=== PATIENT | female | born 1950 | race Caucasian/White ===

== ENCOUNTER → 2016-10-15 | Outpatient (CLI) | payer MEDICARE, OTHER ==
[~2016-10-15] MED LIST: ASPI-COR81 M1 PO; DIAZIDE; EPA1000 MG PO; FLEXERIL10 MG PO; LOVASTATIN10 MG PO; NAPROSYN500 MG PO; OMEPRAZOLE40 MG PO; PAXIL30 MG PO; PERCOCET 325 MG1 TA5 PO; RANITIDINE75 MG PO; VENLAFAXINE H37.5 M5 PO; VICODIN 5/500 505 MG PO; ZOFRAN4 MG PO; ZYRTEC10 MG PO
[2016-10-15 10:19] LABS: BILIRUBIN NEGATIVE (NEGATIVE); BLOOD TRACE-INTACT (NEGATIVE); CLARITY CLOUDY (CLEAR); COLOR YELLOW (YELLOW); GLUCOSE NEGATIVE (NEGATIVE); KETONE NEGATIVE (NEGATIVE); LEUKO ESTERASE 3+ (NEGATIVE); NITRITE NEGATIVE (NEGATIVE); PROTEIN NEGATIVE (NEGATIVE)
[2016-10-15 11:06] LABS: WBC 51-100 wbc/hpf (0-5)
[2016-10-15 11:07] LABS: BACTERIA 4+
== END | disposition home or self-care (01) ==
LOC: LAB 08:43
PROVIDERS: Orthopaedic Surgery
DX: Z01.818 Encounter for other preprocedural examination (principal); S83.242A Other tear of medial meniscus, current injury, left knee, initial encounter; M22.42 Chondromalacia patellae, left knee; X58.XXXA Exposure to other specified factors, initial encounter; Y93.89 Activity, other specified; Y92.89 Other specified places as the place of occurrence of the external cause; Y99.8 Other external cause status; M47.894 Other spondylosis, thoracic region; M17.0 Bilateral primary osteoarthritis of knee; I10 Essential (primary) hypertension; E55.9 Vitamin D deficiency, unspecified; E78.00 Pure hypercholesterolemia, unspecified

== ENCOUNTER → 2016-10-22 | Day surgery (SDC) | payer MEDICARE, OTHER ==
[2016-10-15 09:04] VITALS: BP 136/91
[~2016-10-22] VITALS: Ht 165.1 cm; Wt 77.1 kg
--- NOTE | ~2016-10-22 | O ---
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 OPERATIVE PROCEDURES: Left knee arthroscopy with debridement of the medial and lateral meniscus tear and chondroplasty of the medial, lateral and patellofemoral compartments. SURGEON: Jose Yeboah DO BOOKING SUPERVISOR: Paulino. ANESTHESIA: ETHAN Sena, general with LMA intubation. INDICATIONS: The patient is a 66-year-old female with a history of pain and disability about the left knee, unrelieved with conservative care. The risks and benefits of the procedure were explained to the patient preoperatively. Preoperative labs and x-rays were obtained. Preoperative MRI was obtained confirming a complex medial meniscus tear and chondromalacia. PROCEDURE DESCRIPTION: The left knee was marked in the holding area. The patient was brought to the operative suite. Timeout was performed. The patient was placed supine on the operative table. General anesthetic with LMA intubation was performed. The left lower extremity was prepped and draped in the usual orthopedic manner and placed in a leg gallagher. The area about the medial and lateral parapatellar portals were injected with Marcaine 0.5% with epinephrine. The lateral portal was created using a #11 blade followed by a blunt trocar and cannula. The trocar was removed, the cannula remained. The inflow and the outflow were established through the cannula. The arthroscopy camera was placed through the cannula as well. The medial portal was created using a spinal needle followed by a #11 blade and a blunt trocar. The knee was evaluated in a systematic fashion. The medial compartment was evaluated and noted to have a complex posterior medial meniscus tear as well as grade 3 chondromalacia about the medial femoral condyle and tibial condyle. The meniscus tear was debrided using a handheld instrumentation, a full-radius resector, and an Arthrocare radiofrequency wand. The articular surface was gently smoothed using the full-radius resector as well as a handheld ling ball rasp. The notch was identified and evaluated. There was noted to be significant synovitis which was gently debrided using the radiofrequency wand. The anterior cruciate ligament was noted to be intact to probing and an anterior drawer test. Lateral compartment was identified and evaluated. There was noted to be a degenerative tear about the lateral meniscus. This was debrided using handheld [place], [place] OPERATIVE NOTE NAME: DARRYL GARCÍA UNIT #: [id number] ROOM: DOCTOR: JOSE YEBOAH DO BIRTHDATE: [birth year] instrumentation, a full-radius resector, and a radiofrequency wand. There was noted to be grade 2 chondromalacia in the lateral compartment, particularly about the tibial condyle. The patellofemoral joint was identified and evaluated. There was noted to be grade 2 chondromalacia about the femoral notch and patellar region. This was gently debrided using a handheld ling ball rasp and a full-radius resector to remove any remaining debris. The instrumentation was switched using an arthroscopy camera medially and instrumentation laterally. All compartments were again identified and evaluated. Further debridement was performed, particularly about the medial meniscus and the lateral meniscus. When no further repairable or debridable pathology was present, the knee was copiously irrigated with remainder of lactated Ringer with epinephrine. The instrumentation was removed. The knee was expressed of any excess fluid. The portals were closed with 4-0 nylon. The knee was injected with Marcaine 0.5% with epinephrine. Xeroform, 4 x 4s, ABDs, and cast padding were used to complete the dressing, followed by an Rome bandage. The anesthetic was reversed. The patient was extubated and taken to recovery room in satisfactory condition. Sponge and needle count correct. ESTIMATED BLOOD LOSS: 5 mL. SPECIMENS: None. DRAINS: None. PACKING: None. FINDINGS: 1. Complex medial meniscus tear. 2. Lateral meniscus tear. 3. Chondromalacia grade 3 of the medial compartment. 4. Chondromalacia grade 2 of the lateral and patellofemoral compartments. [place], [place] OPERATIVE NOTE NAME: DARRYL GARCÍA UNIT #: [id number] ROOM: DOCTOR: JOSE YEBOAH DO BIRTHDATE: [birth year] JOSE YEBOAH DO CM:OPRECORD:OPERATIVE NOTE [id number] JOSE YEBOAH DO 10/23/16 1537 interface
[2016-10-22 09:51] LABS: BILIRUBIN NEGATIVE (NEGATIVE); BLOOD NEGATIVE (NEGATIVE); COLOR YELLOW (YELLOW); GLUCOSE NEGATIVE (NEGATIVE); KETONE NEGATIVE (NEGATIVE); LEUKO ESTERASE NEGATIVE (NEGATIVE); NITRITE NEGATIVE (NEGATIVE); PROTEIN NEGATIVE (NEGATIVE); SPECIFIC GRAVITY 1.015 (1.005-1.030); UROBILINOGEN 0.2 E.U./dl (0.2-1.0)
[2016-10-22 09:57] LABS: BACTERIA TRACE; CLARITY SL CLOUDY (CLEAR); MUCOUS 1+
[2016-10-22 10:00] VITALS: BP 142/74
[2016-10-22 13:05] VITALS: BP 163/86
[2016-10-22 13:20] VITALS: BP 143/80
[2016-10-22 13:34] VITALS: BP 146/84
[2016-10-22 13:50] VITALS: BP 159/80
[2016-10-22 14:05] VITALS: BP 160/88
== END | disposition home or self-care (01) ==
LOC: SDC 10-15 08:45
PROVIDERS: Orthopaedic Surgery
DX: S83.232A Complex tear of medial meniscus, current injury, left knee, initial encounter (principal); S83.282A Other tear of lateral meniscus, current injury, left knee, initial encounter; M65.862 Other synovitis and tenosynovitis, left lower leg; M94.262 Chondromalacia, left knee; M17.12 Unilateral primary osteoarthritis, left knee; X58.XXXA Exposure to other specified factors, initial encounter; Y93.89 Activity, other specified; Y92.89 Other specified places as the place of occurrence of the external cause; Y99.8 Other external cause status; F41.9 Anxiety disorder, unspecified; F32.9 Major depressive disorder, single episode, unspecified

== ENCOUNTER → 2017-04-16 | Outpatient (CLI) | payer MEDICARE, OTHER | END | disposition home or self-care (01) | LOC: ORTHO 03:20 | DX: M17.12 Unilateral primary osteoarthritis, left knee (principal); M25.462 Effusion, left knee; M85.88 Other specified disorders of bone density and structure, other site ==

== ENCOUNTER → 2017-05-20 | Outpatient (CLI) | payer MEDICARE, OTHER | END | disposition home or self-care (01) | LOC: MAMMO 12:08 | DX: Z12.31 Encounter for screening mammogram for malignant neoplasm of breast (principal); Z13.820 Encounter for screening for osteoporosis; N95.9 Unspecified menopausal and perimenopausal disorder ==

== ENCOUNTER → 2018-06-10 | Outpatient (CLI) | payer MEDICARE, OTHER ==
[~2018-06-10] MED LIST changes: +ABILIFY5 MG PO; +LEVOTHYROXINE50 MCG PO
== END | disposition home or self-care (01) ==
LOC: MAMMO 05-21 14:00
DX: Z12.31 Encounter for screening mammogram for malignant neoplasm of breast (principal); R92.1 Mammographic calcification found on diagnostic imaging of breast

== ENCOUNTER → 2018-09-02 | Day surgery (SDC) | payer MEDICARE, OTHER ==
[~2018-09-02] VITALS: Ht 165.1 cm; Wt 74.8 kg
--- NOTE | ~2018-09-02 | O ---
[place], [place] OPERATIVE NOTE NAME: DARRYL GARCÍA UNIT #: [id number] ROOM: DOCTOR: DELGADO DE LA CRUZ MD BIRTHDATE: [birth year] DOS: 09/02/2018 PREOPERATIVE DIAGNOSIS: Cataract, right eye. POSTOPERATIVE DIAGNOSIS: Cataract, right eye. OPERATION: Extracapsular cataract extraction by phacoemulsification with posterior chamber intraocular lens implantation, right eye. ANESTHESIA: Monitored standby. OPERATIVE FINDINGS AND PROCEDURE: 2% Xylocaine topical anesthetic gel was applied to the eye in the preop area. The patient was taken to the operating room and prepped and draped in the standard fashion for sterile intraocular surgery. A time out procedure was performed verifying correct patient, correct site and corrects lens with Lizzeth De La Cruz M.D. The operating microscope was swung into position and the lid speculum was inserted. Using a Ros paracentesis blade, a paracentesis was made through clear cornea. Viscoelastic was used to fill the anterior chamber. Using a metal keratome a 2.4 mm self-sealing clear corneal cataract incision was made temporally at the limbus. Using a pre-bent 25 gauge cystotome needle, a standard continuous curvilinear capsulorrhexis was performed. The anterior capsule was removed with forceps. The lens nucleus was hydrodissected and phacoemulsified in the posterior chamber. Cortical material was removed with the irrigation aspiration hand piece and the posterior capsule was then polished with a curet under irrigation. The posterior chamber and capsular bag were filled with viscoelastic. A posterior chamber intraocular lens manufactured by: [employer], Model #[id number], and 20.5 diopters in strength were then inserted into the posterior chamber and within the capsular bag using the lens cartridge and injector system. Viscoelastic was removed using the irrigation aspiration handpiece. The anterior chamber was filled with balanced salt solution through the paracentesis. Both the paracentesis site and cataract incisions were hydrated with BSS and verified to be water-tight and self-sealing. Cefuroxime 1 mg/0.1 mL was injected into the anterior chamber through the paracentesis site. The incision checked to be water-tight using a Weck-Fabiola sponge. The integrity of the cataract wound and ocular tension were checked. Lid speculum and drapes were removed. The patient was transferred from the operating room to the recovery room in satisfactory condition. [place], [place] OPERATIVE NOTE NAME: DARRYL GARCÍA UNIT #: [id number] ROOM: DOCTOR: DELGADO DE LA CRUZ MD BIRTHDATE: [birth year] DELGADO DE LA CRUZ MD CM:OPRECORD:OPERATIVE NOTE 1138 [id number] DELGADO DE LA CRUZ MD 09/02/18 1154 interface
[2018-09-02 09:15] VITALS: BP 123/75
[2018-09-02 11:34] VITALS: BP 127/74
[2018-09-02 11:49] VITALS: BP 118/88
[2018-09-02 12:04] VITALS: BP 125/77
== END | disposition home or self-care (01) ==
LOC: SDC 08-28 11:00
DX: H25.811 Combined forms of age-related cataract, right eye (principal); F41.9 Anxiety disorder, unspecified; F32.9 Major depressive disorder, single episode, unspecified; K21.9 Gastro-esophageal reflux disease without esophagitis; E03.9 Hypothyroidism, unspecified; Z79.899 Other long term (current) drug therapy; Z98.51 Tubal ligation status; Z98.890 Other specified postprocedural states; Z72.89 Other problems related to lifestyle; Z91.040 Latex allergy status

== ENCOUNTER → 2018-09-09 | Day surgery (SDC) | payer MEDICARE, OTHER ==
--- NOTE | ~2018-09-09 | O ---
[place], [place] OPERATIVE NOTE NAME: DARRYL GARCÍA UNIT #: [id number] ROOM: DOCTOR: DELGADO DE LA CRUZ MD BIRTHDATE: [birth year] DOS: 09/09/2018 PREOPERATIVE DIAGNOSIS: Cataract, right eye. POSTOPERATIVE DIAGNOSIS: Cataract, right eye. OPERATION: Extracapsular cataract extraction by phacoemulsification with posterior chamber intraocular lens implantation, right eye. ANESTHESIA: Monitored standby. OPERATIVE FINDINGS AND PROCEDURE: 2% Xylocaine topical anesthetic gel was applied to the eye in the preop area. The patient was taken to the operating room and prepped and draped in the standard fashion for sterile intraocular surgery. A time out procedure was performed verifying correct patient, correct site and corrects lens with Lizzeth De La Cruz M.D. The operating microscope was swung into position and the lid speculum was inserted. Using a Ros paracentesis blade, a paracentesis was made through clear cornea. Viscoelastic was used to fill the anterior chamber. Using a metal keratome a 2.4 mm self-sealing clear corneal cataract incision was made temporally at the limbus. Using a pre-bent 25 gauge cystotome needle, a standard continuous curvilinear capsulorrhexis was performed. The anterior capsule was removed with forceps. The lens nucleus was hydrodissected and phacoemulsified in the posterior chamber. Cortical material was removed with the irrigation aspiration hand piece and the posterior capsule was then polished with a curet under irrigation. The posterior chamber and capsular bag were filled with viscoelastic. A posterior chamber intraocular lens manufactured by: [employer] [id number], 19.5 diopters in strength were then inserted into the posterior chamber and within the capsular bag using the lens cartridge and injector system. Viscoelastic was removed using the irrigation aspiration handpiece. The anterior chamber was filled with balanced salt solution through the paracentesis. Both the paracentesis site and cataract incisions were hydrated with BSS and verified to be water-tight and self-sealing. Cefuroxime 1 mg/0.1 mL was injected into the anterior chamber through the paracentesis site. The incision checked to be water-tight using a Weck-Fabiola sponge. The integrity of the cataract wound and ocular tension were checked. Lid speculum and drapes were removed. The patient was transferred from the operating room to the recovery room in satisfactory condition. [place], [place] OPERATIVE NOTE NAME: DARRYL GARCÍA UNIT #: [id number] ROOM: DOCTOR: DELGADO DE LA CRUZ MD BIRTHDATE: [birth year] DELGADO DE LA CRUZ MD CM:OPRECORD:OPERATIVE NOTE 1347 1419 DELGADO DE LA CRUZ MD 09/11/18 1135 CSOTT [email or web address]
--- NOTE | ~2018-09-09 | O ---
[place], [place] OPERATIVE NOTE NAME: DARRYL GARCÍA UNIT #: [id number] ROOM: DOCTOR: DELGADO DE LA CRUZ MD BIRTHDATE: [birth year] DOS: 09/09/2018 PREOPERATIVE DIAGNOSIS: Cataract, right eye. POSTOPERATIVE DIAGNOSIS: Cataract, right eye. OPERATION: Extracapsular cataract extraction by phacoemulsification with posterior chamber intraocular lens implantation, right eye. ANESTHESIA: Monitored standby. OPERATIVE FINDINGS AND PROCEDURE: 2% Xylocaine topical anesthetic gel was applied to the eye in the preop area. The patient was taken to the operating room and prepped and draped in the standard fashion for sterile intraocular surgery. A time out procedure was performed verifying correct patient, correct site and corrects lens with Lizzeth De La Cruz M.D. The operating microscope was swung into position and the lid speculum was inserted. Using a Ros paracentesis blade, a paracentesis was made through clear cornea. Viscoelastic was used to fill the anterior chamber. Using a metal keratome a 2.4 mm self-sealing clear corneal cataract incision was made temporally at the limbus. Using a pre-bent 25 gauge cystotome needle, a standard continuous curvilinear capsulorrhexis was performed. The anterior capsule was removed with forceps. The lens nucleus was hydrodissected and phacoemulsified in the posterior chamber. Cortical material was removed with the irrigation aspiration hand piece and the posterior capsule was then polished with a curet under irrigation. The posterior chamber and capsular bag were filled with viscoelastic. A posterior chamber intraocular lens manufactured by: [employer], Model AU00T0, and 19.5 diopters in strength were then inserted into the posterior chamber and within the capsular bag using the lens cartridge and injector system. Viscoelastic was removed using the irrigation aspiration handpiece. The anterior chamber was filled with balanced salt solution through the paracentesis. Both the paracentesis site and cataract incisions were hydrated with BSS and verified to be water-tight and self-sealing. Cefuroxime 1 mg/0.1 mL was injected into the anterior chamber through the paracentesis site. The incision checked to be water-tight using a Weck-Fabiola sponge. The integrity of the cataract wound and ocular tension were checked. Lid speculum and drapes were removed. The patient was transferred from the operating room to the recovery room in satisfactory condition. [place], [place] OPERATIVE NOTE NAME: DARRYL GARCÍA UNIT #: [id number] ROOM: DOCTOR: DELGADO DE LA CRUZ MD BIRTHDATE: [birth year] DELGADO DE LA CRUZ MD CM:OPRECORD:OPERATIVE NOTE 1311 1317 DEGLADO DE LA CRUZ MD 09/11/18 1135 SCOTT [email or web address]
[2018-09-09 12:15] VITALS: BP 118/56
[2018-09-09 13:07] VITALS: BP 138/87
[2018-09-09 13:22] VITALS: BP 131/93
[2018-09-09 13:37] VITALS: BP 132/70
== END | disposition home or self-care (01) ==
LOC: SDC 09-04 17:00
DX: H25.9 Unspecified age-related cataract (principal)

== ENCOUNTER → 2018-09-09 | Day surgery (SDC) | payer MEDICARE, OTHER ==
--- NOTE | ~2018-09-09 | O ---
[place], [place] OPERATIVE NOTE NAME: DARRYL GARCÍA UNIT #: [id number] ROOM: DOCTOR: DELGADO DE LA CRUZ MD BIRTHDATE: [birth year] DOS: 09/09/2018 PREOPERATIVE DIAGNOSIS: Cataract, right eye. POSTOPERATIVE DIAGNOSIS: Cataract, right eye. OPERATION: Extracapsular cataract extraction by phacoemulsification with posterior chamber intraocular lens implantation, right eye. ANESTHESIA: Monitored standby. OPERATIVE FINDINGS AND PROCEDURE: 2% Xylocaine topical anesthetic gel was applied to the eye in the preop area. The patient was taken to the operating room and prepped and draped in the standard fashion for sterile intraocular surgery. A time out procedure was performed verifying correct patient, correct site and corrects lens with Lizzeth De La Cruz M.D. The operating microscope was swung into position and the lid speculum was inserted. Using a Ros paracentesis blade, a paracentesis was made through clear cornea. Viscoelastic was used to fill the anterior chamber. Using a metal keratome a 2.4 mm self-sealing clear corneal cataract incision was made temporally at the limbus. Using a pre-bent 25 gauge cystotome needle, a standard continuous curvilinear capsulorrhexis was performed. The anterior capsule was removed with forceps. The lens nucleus was hydrodissected and phacoemulsified in the posterior chamber. Cortical material was removed with the irrigation aspiration hand piece and the posterior capsule was then polished with a curet under irrigation. The posterior chamber and capsular bag were filled with viscoelastic. A posterior chamber intraocular lens manufactured by: [employer], Model [id number], and 19.5 diopters in strength were then inserted into the posterior chamber and within the capsular bag using the lens cartridge and injector system. Viscoelastic was removed using the irrigation aspiration handpiece. The anterior chamber was filled with balanced salt solution through the paracentesis. Both the paracentesis site and cataract incisions were hydrated with BSS and verified to be water-tight and self-sealing. Cefuroxime 1 mg/0.1 mL was injected into the anterior chamber through the paracentesis site. The incision checked to be water-tight using a Weck-Fabiola sponge. The integrity of the cataract wound and ocular tension were checked. Lid speculum and drapes were removed. The patient was transferred from the operating room to the recovery room in satisfactory condition. [place], [place] OPERATIVE NOTE NAME: DARRYL GARCÍA UNIT #: [id number] ROOM: DOCTOR: DELGADO DE LA CRUZ MD BIRTHDATE: [birth year] DELGADO DE LA CRUZ MD CM:OPRECORD:OPERATIVE NOTE [id number] [id number] DELGADO DE LA CRUZ MD 09/11/18 1129 interface
--- NOTE | ~2018-09-09 | O ---
[place], [place] OPERATIVE NOTE NAME: DARRYL GARCÍA UNIT #: [id number] ROOM: DOCTOR: DELGADO DE LA CRUZ MD BIRTHDATE: [birth year] DOS: 09/09/2018 PREOPERATIVE DIAGNOSIS: Cataract, right eye. POSTOPERATIVE DIAGNOSIS: Cataract, right eye. OPERATION: Extracapsular cataract extraction by phacoemulsification with posterior chamber intraocular lens implantation, right eye. ANESTHESIA: Monitored standby. OPERATIVE FINDINGS AND PROCEDURE: 2% Xylocaine topical anesthetic gel was applied to the eye in the preop area. The patient was taken to the operating room and prepped and draped in the standard fashion for sterile intraocular surgery. A time out procedure was performed verifying correct patient, correct site and corrects lens with Lizzeth De La Cruz M.D. The operating microscope was swung into position and the lid speculum was inserted. Using a Ros paracentesis blade, a paracentesis was made through clear cornea. Viscoelastic was used to fill the anterior chamber. Using a metal keratome a 2.4 mm self-sealing clear corneal cataract incision was made temporally at the limbus. Using a pre-bent 25 gauge cystotome needle, a standard continuous curvilinear capsulorrhexis was performed. The anterior capsule was removed with forceps. The lens nucleus was hydrodissected and phacoemulsified in the posterior chamber. Cortical material was removed with the irrigation aspiration hand piece and the posterior capsule was then polished with a curet under irrigation. The posterior chamber and capsular bag were filled with viscoelastic. A posterior chamber intraocular lens manufactured by: [employer] [id number], 19.5 diopters in strength were then inserted into the posterior chamber and within the capsular bag using the lens cartridge and injector system. Viscoelastic was removed using the irrigation aspiration handpiece. The anterior chamber was filled with balanced salt solution through the paracentesis. Both the paracentesis site and cataract incisions were hydrated with BSS and verified to be water-tight and self-sealing. Cefuroxime 1 mg/0.1 mL was injected into the anterior chamber through the paracentesis site. The incision checked to be water-tight using a Weck-Fabiola sponge. The integrity of the cataract wound and ocular tension were checked. Lid speculum and drapes were removed. The patient was transferred from the operating room to the recovery room in satisfactory condition. [place], [place] OPERATIVE NOTE NAME: DARRYL GARCÍA UNIT #: [id number] ROOM: DOCTOR: DELGADO DE LA CRUZ MD BIRTHDATE: [birth year] DELGADO DE LA CRUZ MD CM:OPRECORD:OPERATIVE NOTE 1347 1419 DELGADO DE LA CRUZ MD 09/11/18 1128 interface
== END | disposition home or self-care (01) ==
LOC: SDC 06:29
DX: H25.811 Combined forms of age-related cataract, right eye (principal); K21.9 Gastro-esophageal reflux disease without esophagitis; E78.5 Hyperlipidemia, unspecified; F41.9 Anxiety disorder, unspecified; Z72.89 Other problems related to lifestyle; Z98.890 Other specified postprocedural states; Z98.51 Tubal ligation status; Z79.899 Other long term (current) drug therapy; Z79.82 Long term (current) use of aspirin; Z91.048 Other nonmedicinal substance allergy status; Z98.42 Cataract extraction status, left eye; Z96.1 Presence of intraocular lens

== ENCOUNTER → 2018-10-22 | Outpatient (CLI) | payer MEDICARE, OTHER ==
[~2018-10-22] MED LIST changes: +B121000 MCG/1 IM; +EFFEXOR XR150 M1 PO; +HYDROXYZINE PAM25 M1 PO; +LATU40TA PO; +LITHIUM CARBON450 M1 PO; +MIRTAZAPINE15 M2 PO; +QUETIAPINE FUM100 M3 PO; +QUETIAPINE FUMA50 M1 PO; +SYNTHROID25 MCG PO; +VITAMIN D5000 UNI1 PO; +ZOLPIDEM TART5 MG PO
[2018-10-22 11:28] LABS: BUN 15 mg/dl (7-24); CREATININE 0.96 mg/dL (0.55-1.02)
== END | disposition home or self-care (01) ==
LOC: LAB 10:37
PROVIDERS: Specialist
DX: Z79.899 Other long term (current) drug therapy (principal)

== ENCOUNTER → 2018-11-03 | Outpatient (CLI) | payer MEDICARE, OTHER | END | disposition home or self-care (01) | LOC: LAB 10:29 | DX: Z79.891 Long term (current) use of opiate analgesic (principal) ==

== ENCOUNTER → 2019-07-06 | Outpatient (CLI) | payer MEDICARE | END | disposition home or self-care (01) | LOC: CT 12:56 | DX: M17.12 Unilateral primary osteoarthritis, left knee (principal) ==

== ENCOUNTER → 2019-09-07 | Outpatient (CLI) | payer MEDICARE | END | disposition home or self-care (01) | LOC: MAMMO 12:56 | DX: Z12.31 Encounter for screening mammogram for malignant neoplasm of breast (principal); N64.89 Other specified disorders of breast ==

== ENCOUNTER → 2019-09-20 | Outpatient (CLI) | payer MEDICARE ==
[~2019-09-20] MED LIST changes: +ALEVE220 MG PO; +COGENTIN0.5 MG PO; +LEXAPRO10 MG PO; +REXULTI1 MG PO; +XANAX0.25 MG PO
[2019-09-20 14:37] LABS: BASO % 0.5 % (0.0-1.0); EOS # 0.3 10*3/uL (0.0-0.4); EOS % 3.1 % (1.0-4.0); HEMATOCRIT 43.2 % (37.0-47.0); HEMOGLOBIN 14.6 g/dl (12.0-16.0); LYMPH # 2.6 10*3/uL (1.3-4.4); LYMPH % 32.1 % (27.0-41.0); MEAN CELL VOLUME 89.1 fl (81.0-99.0); MEAN CORPUSCULAR HGB 30.1 pg (27.0-31.0); MEAN CORPUSCULAR HGB CONC 33.8 g/dl (33.0-37.0); MEAN PLATELET VOLUME 10.1 fl (9.6-12.3); MONO # 0.7 10*3/uL (0.1-1.0); MONO % 8.1 % (3.0-9.0); NEUT # 4.5 10*3/uL (2.3-7.9); PLATELET COUNT AUTOMATED 317 10*3/uL (130-400); RED BLOOD COUNT 4.85 10*6/uL (4.10-5.10); RED CELL DISTRI WIDTH 12.9 % (0-14.5)
[2019-09-20 14:43] LABS: BILIRUBIN NEGATIVE (NEGATIVE); BLOOD NEGATIVE (NEGATIVE); CLARITY CLEAR (CLEAR); COLOR YELLOW (YELLOW); GLUCOSE NEGATIVE (NEGATIVE); KETONE NEGATIVE (NEGATIVE); LEUKO ESTERASE NEGATIVE (NEGATIVE); NITRITE NEGATIVE (NEGATIVE); UROBILINOGEN 0.2 E.U./dl (0.2-1.0)
[2019-09-20 14:55] LABS: RBC 0-2 rbc/hpf (0-2); WBC 0-2 wbc/hpf (0-5)
[2019-09-20 15:06] LABS: ALBUMIN 4.1 gm/dl (3.1-4.5); ALKALINE PHOSPHATASE 105 U/L (45-117); BUN 14 mg/dl (7-24); CHLORIDE 109 mmol/L (98-107); CREATININE 0.89 mg/dL (0.55-1.02); POTASSIUM 3.8 mmol/L (3.5-5.1); SGOT/AST 60 IU/L (3-35); SGPT/ALT 88 U/L (12-78); SODIUM 143 mmol/L (136-145); TOTAL PROTEIN 7.7 gm/dL (6.4-8.2)
== END | disposition home or self-care (01) ==
LOC: LAB 13:16
PROVIDERS: Orthopaedic Surgery
DX: M17.12 Unilateral primary osteoarthritis, left knee (principal); Z87.891 Personal history of nicotine dependence; E55.9 Vitamin D deficiency, unspecified

== ENCOUNTER 2019-10-05 02:29 | Inpatient (IN) | payer MEDICARE ==
[2019-09-20 13:30] VITALS: BP 126/74
[~2019-10-05] VITALS: Ht 165.1 cm; Wt 81.2 kg
[2019-10-05] VITALS (11 sets, daily range): BP systolic 109–155; BP diastolic 58–85
--- NOTE | 2019-10-05 14:21 | NUR ---
A 69, admitted to 5E, under the services of MIKAL Vick DO with a diagnosis of S/P L KNEE REPLACEMENT. Chief complaint is NO COMPLAINT. Patient arrived via bed from OP/ADMIT. Monitor applied. Initial assessment completed. Vital signs taken and recorded. MIKAL VICK DO notified of admission to the unit. Orders received. See assessment for past medical history, medications and allergies. Patient and/or family oriented to unit. [address] visitation policy reviewed. Clothing/patient valuable form completed. PA ALBA
--- NOTE | 2019-10-05 14:47 | NUR ---
PT COMPLAINS OF PAIN IN L KNEE AFTER SX PRN NORCO GIVEN PAIN 04/07
--- NOTE | 2019-10-05 14:50 | NUR ---
PHYSICAL THERAPY Will evaluate pt in the AM just transfered to regular floor still on CPM nandini follow Gayla Sepulveda PT
--- NOTE | 2019-10-05 14:50 | NUR ---
Patient just returned to nursing floor after LTKA and still on CPM machine. OTR will assess in the am. Levar Landis OTR/nisreen
--- NOTE | 2019-10-05 15:00 | NUR ---
pt taken off cpm machine
--- NOTE | 2019-10-05 15:43 | NUR ---
dr spencer aware of consult
--- NOTE | 2019-10-05 16:09 | NUR ---
PER DR GOMEZ GIVE TORADOL 1800 DOSE NOW
--- NOTE | 2019-10-05 16:12 | NUR ---
PT COMPLAINS OF PAIN AND NAUSEA PRN ZOFRAN GIVEN AND TORADOL GIVEN FOR 1800
--- NOTE | 2019-10-05 16:15 | NUR ---
SX INCISION NOT VISUALIZED L LEG WRAPPED IN DESHAWN BANDAGES, DRESSING CHANGE DUE POD#2
--- NOTE | 2019-10-05 16:50 | NUR ---
INSTRUCTED FOR IS. PT GIVING A RETURN DEMONSTRATION AND ACHIEVING A VOLUME OF 1000 X 10 BREATHS X 1 SECOND BREATH HOLD. GOOD EFFORT. LUNG SOUNDS ARE CLEAR. ENCOURAGED Q 1 HOUR USE W/A.
--- NOTE | 2019-10-05 17:50 | NUR ---
SPOKE WITH YAYA SAID TO GIVE PT NORCO AT THIS TIME D/T PT COMPLAINING OF PAIN
--- NOTE | 2019-10-05 17:53 | NUR ---
PRN NORCO GIVEN D/T PT COMPLAINING OF L LEG PAIN 07/08
--- NOTE | 2019-10-05 18:01 | NUR ---
PULSE OX IS 94% RA.
--- NOTE | 2019-10-05 18:50 | NUR ---
CPM MACHINE ON AT THIS TIME
--- NOTE | 2019-10-05 21:27 | NUR ---
PATIENT IS RESTING IN BED WITH EASY AND REGULAR RESPERS ON ROOM AIR. ASSESSMENT IS COMPLETE WITH NO S/S OF DISTRESS NOTED. PATIENT C/O PAIN TO LEFT KNEE RATING A 6/10. PRN MORPHINE GIVEN. CPM MACHINE REMOVED WITH HELP OF ANOTHER RN. BED IS LOW, LOCKED, AND CALL LIGHT IS WITHIN REACH, WILL MONITOR EFFECT. SEE SHIFT ASSESSMENT.
--- NOTE | 2019-10-05 22:00 | NUR ---
PRN PAIN MEDICATION EFFECTIVE PER PATIENT. CALL LIGHT IS WITHIN REACH.
--- NOTE | 2019-10-05 22:50 | NUR ---
PRN NORCO GIVEN AT THIS TIME FOR LEFT LEG PAIN RATING A 5/10. CALL LIGHT IS WITHIN REACH, WILL MONITOR EFFECT.
[2019-10-06] VITALS: BP 135/68
--- NOTE | 2019-10-06 | NUR ---
PRN MEDICATION APPEARS EFFECTIVE, PATIENT IS SLEEPING WITH EASY AND REGULAR RESPERS ON ROOM AIR. CALL LIGHT IS WITHIN REACH.
[2019-10-06 06:24] LABS: BASO % 0.2 % (0.0-1.0); EOS % 0.2 % (1.0-4.0); HEMATOCRIT 35.8 % (37.0-47.0); HEMOGLOBIN 11.9 g/dl (12.0-16.0); LYMPH # 1.7 10*3/uL (1.3-4.4); LYMPH % 16.1 % (27.0-41.0); MEAN CELL VOLUME 91.3 fl (81.0-99.0); MEAN CORPUSCULAR HGB 30.4 pg (27.0-31.0); MEAN CORPUSCULAR HGB CONC 33.2 g/dl (33.0-37.0); MEAN PLATELET VOLUME 10.7 fl (9.6-12.3); MONO # 1.3 10*3/uL (0.1-1.0); MONO % 12.3 % (3.0-9.0); NEUT # 7.5 10*3/uL (2.3-7.9); NEUT % 70.9 % (47.0-73.0); PLATELET COUNT AUTOMATED 249 10*3/uL (130-400); RED BLOOD COUNT 3.92 10*6/uL (4.10-5.10); RED CELL DISTRI WIDTH 13.4 % (0-14.5); WHITE BLOOD COUNT 10.5 10*3/uL (4.8-10.8)
[2019-10-06 06:33] LABS: BUN 15 mg/dl (7-24); CHLORIDE 107 mmol/L (98-107); CREATININE 0.77 mg/dL (0.55-1.02); PHOSPHOROUS 3.3 mg/dL (2.5-4.9); POTASSIUM 3.7 mmol/L (3.5-5.1); SODIUM 139 mmol/L (136-145)
--- NOTE | 2019-10-06 07:02 | NUR ---
DARRYL GARCÍA [id number] Please refer to the physician's history and physical for past medical history, comorbid conditions, and allergies. Diagnosis: S/P LEFT TOTAL KNEE REPLACEMENT Kunal Score: 14,MODERATE RISK WOUND DESCRIPTIONS: Patient has dressing intact to left lower extremity. No strike through drainage noted at time of assessment. No complaints of pain at time of assessment. Patient stated she will continue to follow up with upon discharge. Surface the patient is resting on: Proform SKIN PREVENTION RECOMMENDATION: 1. Pressure redistribution support surface as appropriate 2. Elevate heels 3. Remove boots/TEDS every shift and reapply 4. Head of bed 30 degrees as tolerated 5. Assess nutrition and hydration 6. Manage moisture 7. Avoid the use of containment devices while in bed 8. Use absorptive products on surfaces limit layers of linens on bed 9. Turn and reposition every 1-2 hours in bed and every 1 hour in chair as tolerated 10. Weight shifts every 15 minutes while up in chair 11. Offloading with pillows or device to keep heels elevated off bed 12. Monitor skin at least every shift 13. Inspect under medical devices twice a day WOUND TREATMENT RECOMMENDATIONS: Continue dressing orders per ortho on post day #2. Heel raiser pro boots to bilateral heels while in bed.
--- NOTE | 2019-10-06 07:30 | NUR ---
TOOK OVER CARE OF PT AT THIS TIME. PT RESTING IN BED. NO S/S OF DISTRESS. NO COMPLAINTS ARE VOICED AT THIS TIME. ALL SAFETY MEASURES IN PLACE. HOB ELEVATED. CALL LIGHT IN REACH.
--- NOTE | 2019-10-06 07:47 | NUR ---
VS STABLE. LUCHO, A&Ox3, PT IS PLEASANT AND COOPERATIVE. SKIN WARM AND DRY, CAP REFILL <3 SEC. STATES, "THERE IS PAIN IN MY LEFT LEG. IT'S NOT TERRIBLE BUT I KNOW IT'S THERE." GIVEN MORPHINE 2 MG IVP BY TYSON VARMA RN. HEART SOUNDS ARE NORMAL, PULSE 72, STRONG. LUNGS ARE CLEAR THROUGHOUT, RATE 12. BOWEL SOUNDS x4, ABDOMEN SOFT, NON-DISTENDED, NON-TENDER. + PULSE IN RLE. DRESSING ON LLE IS DRY AND INTACT, PT CAN MOVE TOES, WARM TO TOUCH, CAN SLIP 2 FINGERS UNDER DRESSING. RIGHT AC IV SITE DRY AND INTACT, NO SIGN OF INFECTION. NO OTHER COMPLAINTS AT THIS TIME, WILL CONTINUE TO MONITOR. RADAMES VILLAGOMEZ
--- NOTE | 2019-10-06 07:51 | NUR ---
PHYSICAL THERAPY Screen received as well as PT jordanal will follow, thank you Gayla Sepulveda PT
[2019-10-06 08:00] VITALS: BP 124/72
--- NOTE | 2019-10-06 08:12 | NUR ---
Nursing screen and occupational therapy referral received. Thank you. Alejandra Landis OTR/l
--- NOTE | 2019-10-06 08:37 | NUR ---
PAIN REASSESSED, PT FABRIZIO, "THE MEDICINE HELPED, MY PAIN IS A 1 OUT OF 10 NOW." WILL CONTINUE TO MONITOR. CLAUDY PARKERCC
--- NOTE | 2019-10-06 08:39 | NUR ---
Dr. Wood notified of wound care recommendations.
--- NOTE | 2019-10-06 08:50 | NUR ---
Patient on CPM machine to left knee. Occupational Therapy interview at this time. OTR to retur for assessment after patient off CPM per nursing request. Alejandra Landis OTr/L
--- NOTE | 2019-10-06 09:44 | NUR ---
PT REQUESTING PAIN MEDICATION. STATES "THE PAIN IS A 1/10, BUT I WOULD LIKE TO HAVE IT SO I'M NOT IN PAIN WHEN PHYSICAL THERAPY COMES." GIVEN 1 TAB NORCO 5 PO. WILL CONTINUE TO MONITOR. CLAUDY PARKERCC
--- NOTE | 2019-10-06 10:40 | NUR ---
PHYSICAL THERAPY Eval initiated noted decreased strength L ankle DF 2/5 also decreased sensation compared to RLE/foot. Deferred OOB/activity at this time, updated primary nurse Brook and contact Dr. Yeboah's office reg findings. SIFUENTES to assess prior to OOB further evaluation. Gayla Sepulveda PT
--- NOTE | 2019-10-06 10:40 | NUR ---
Occupational Therapy evaluation started when PT noticed left foot drop-new since surgery. PT informed Dr. Yeboah office. OT to wait until assesses patient to proceed with evaluation. Alejandra Landis OTR/l
--- NOTE | 2019-10-06 12:00 | NUR ---
DR. MCKAY IN TO SEE PT. INSTRUCTED TO REMOVE SURGICAL DRESSING AND REPLACE WITH AQUACEL DRESSING WHICH SHE DID. WILL CONTINUE TO MONITOR. RADAMES GARCIA SPMERLENECC
[2019-10-06 12:01] VITALS: BP 129/67
--- NOTE | 2019-10-06 12:03 | NUR ---
PT IS SITTING UP IN BED, FAMILY IS IN TO VISIT. WILL CONTINUE TO MONITOR. DAHLIA PARKER
--- NOTE | 2019-10-06 12:03 | NUR ---
PLUNKET NURSE notified the patient would like to be referred to . PLUNKET NURSE faxed new referral to [facility]. Will need PT/OT Evals to complete referral. -JELENA Yanez
--- NOTE | 2019-10-06 12:58 | NUR ---
Patient has been accepted to [facility]. Will need PT/OT Evals. Once Evals are received if medically stable patient can go to [facility] on 10/08/2019. -JELENA Yanez
--- NOTE | 2019-10-06 14:19 | NUR ---
Occupational Therapy evaluation completed on 5 with full eval to follow. Precautions include fall risk,new ww use, L TKA precautions, high complexity level 72469. Recommend OT per pOC and SNF to enable return home w/ .Thank you. Alejandra Landis OTR/l
--- NOTE | 2019-10-06 14:55 | NUR ---
Weight Control Engineer in to talk to patient. Patient states lives at HOME with . There are FEW steps in the home. Physician: CHATA ALONZO [facility] Home health services: NONE Patient's level of ADLs: INDEPENDENT Patient has working utilities: YES DME: NONE Follow-up physician's appointment after d/c: WILL BE MADE BY HOSPITALIST NURSE DIRECTOR ON DISCHARGE Does patient want to access PORTAL?: NO Discharge plan PT LIVES AT HOME WITH AND IS INDEPENDENT IN HER CARE. PT HAD TOTAL KNEE YESTERDAY AND IS REQUESTING TO GO TO [facility]. BED IS AVAILABLE AT AND REFERRAL WAS SENT. WILL CONTINUE TO FOLLOW.. ROCIO AUGUSTE
--- NOTE | 2019-10-06 15:03 | NUR ---
PT GIVEN NORCO 2 TABS PO AT THIS TIME FOR C/O PAIN TO LEFT KNEE. WILL MONITOR FOR EFFECTIVENESS. PT SITTING UP IN CHAIR. AT BEDSIDE, CALL LIGHT IN REACH.
--- NOTE | 2019-10-06 15:18 | NUR ---
PHYSICAL THERAPY Belkis completed pt high level of complexity 97509, pt seen earlier in the AM at 08:30 at that time pt found to have mild LLE foot drop made aware saw pt early in the afternoon clearing her for OOB amb with acewrap to L foot for DF assist with ambulation. Full report to follow recomend inpatient rehab vs SNF. PT to work on transfers, amb with AD, ROM/strengthening, balance/safety. Per ortho MD looking into AFO for pt, will follow. Gayla Sepulveda PT
[2019-10-06 16:00] VITALS: BP 110/52
--- NOTE | 2019-10-06 16:01 | NUR ---
JOHANN EFFECTIVE PER PT.
--- NOTE | 2019-10-06 16:14 | NUR ---
PHYSICAL THERAPY Spoke with Dr Edilia houston resting boot/heel protector in bed for pressure relief and to maintain ankle in DF..she will look at and decide boot vs just use of pillow/towel roll to position udated nurse Brook houston conversation will follow Gayla Sepulveda PT
--- NOTE | 2019-10-06 17:00 | NUR ---
PT ASSISTED FROM RECLINER CHAIR BACK TO BED AT THIS TIME. PT TOLERATED WALKING WITH WALKER AND 2 ASSIST AT THIS TIME. PT COMPLAINS OF NO PAIN WHEN BACK TO BED. HOB IS ELEVATED. PT IS EATING DINNER, AT BEDSIDE. CALL LIGHT IN REACH.
[2019-10-06 20:00] VITALS: BP 108/54
--- NOTE | 2019-10-06 23:14 | NUR ---
LAST SCHEDULED DOSE OF TORADOL GIVEN AT THIS TIME. PATIENT STATES HER PAIN IN A 3/10. NO OTHER COMPLAINTS VOICED AT THIS TIME. HEEL PROTECTOR ON LEFT FOOT, SCD PLACED ON RIGHT LEG. BED IN LOWEST POSITION, CALL LIGHT WITHIN REACH. WILL CONTINUE TO MONITOR.
[2019-10-07] VITALS: BP 97/70
--- NOTE | 2019-10-07 05:12 | NUR ---
PATIENT MEDICATED WITH NORCO FOR C/O LEFT KNEE PAIN. 01/06. WILL CHECK EFFECTIVENESS.
--- NOTE | 2019-10-07 05:43 | NUR ---
PATIENT GIVEN DULCOLAX. STATES SHE HASNT HAD A BOWEL MOVEMENT IN A FEW DAYS.
[2019-10-07 06:35] LABS: BASO % 0.3 % (0.0-1.0); EOS # 0.3 10*3/uL (0.0-0.4); EOS % 3.3 % (1.0-4.0); HEMATOCRIT 35.8 % (37.0-47.0); HEMOGLOBIN 11.8 g/dl (12.0-16.0); LYMPH # 1.4 10*3/uL (1.3-4.4); LYMPH % 13.6 % (27.0-41.0); MEAN CELL VOLUME 91.1 fl (81.0-99.0); MEAN PLATELET VOLUME 10.6 fl (9.6-12.3); MONO # 1.1 10*3/uL (0.1-1.0); MONO % 10.7 % (3.0-9.0); NEUT # 7.2 10*3/uL (2.3-7.9); NEUT % 71.7 % (47.0-73.0); PLATELET COUNT AUTOMATED 251 10*3/uL (130-400); RED BLOOD COUNT 3.93 10*6/uL (4.10-5.10); RED CELL DISTRI WIDTH 13.1 % (0-14.5); WHITE BLOOD COUNT 10.1 10*3/uL (4.8-10.8)
--- NOTE | 2019-10-07 07:27 | NUR ---
Patient has been accepted at . BUSINESS INTEGRATION MANAGER faxed updates to [facility]-. BUSINESS INTEGRATION MANAGER completed HENs. Patient is able to go to 10/08/2019 if medically stable. -JELENA Yanez
[2019-10-07 08:00] VITALS: BP 138/72
--- NOTE | 2019-10-07 10:15 | NUR ---
OT NOTE Pt was seen this A.M. 1:1 for 30 minute OT session. Upon arrival pt was supine in bed. Pt identified by name and and had complaints of 1/10 L knee pain at rest and 5/10 L knee pain with activity. Pt transferred supine to sit EOB with SBA. While sitting EOB requested for pt to doff and tez B socks, pt was able to complete while sitting EOB however presented with P+ sitting balance increasing risk of falls. Pt was educated on lower body adaptive equipment including nuclear medical technologist and sock aid. Pt doffed B socks with use of nuclear medical technologist and SBA and donned B socks with use of sock aid and Oneil due to sequencing. Sit to stand completed from bed level with Oneil and use of w/w for UE support. Functional mobility was then completed into the bathroom with CGA and use of w/w, throughout pt had three LOB that occured that required Oneil to correct. Pt transferred on/off standard commode with Oneil and education for safety concerns with commode alignment and being impulsive. Pt then stood sink side while washing her hands with CGA, pt had one LOB backwards that required Oneil to correct. Pt was left sitting upright in the recliner with call light in hand, tray table in place, and phone in reach. Continue with POC as able. RAHEEL Bueno/Eriberto
--- NOTE | 2019-10-07 10:31 | NUR ---
PHYSICAL THERAPY TREATMENT TIME: 09:45 AM - 10:15 AM 30 MINUTES Patient presented to therapy in supine in bed with head of bed elevated and report of 10/08 on L LE. Patient gives informed consent for treatment. Patient was identified by name and on [facility] [facility]. Patient transferred supine to sittng at EOB with SBA without use of overhead trapeze. Patient sat on EOB with SBA. Patient performed sit to stand from EOB with MIN A X 1 with verbal cues for pushing off the bed with hands. Patient ambulated for 40 ' x 1 with Wh Walker and CGA X 1 and verbal cues for placing heel down first and then ball of foot during gait with L LE. Patient's L foot was stanford bandaged into dorsiflexion by this CARE MANAGEMENT COORDINATOR. Patient demonstrated good understanding of gait technique. Patient transferred into bed side chair with MIN A X 2 wit hverbal cues for putting hands back on armrests of chair and kicking L LE out in front of her as she sat in chair. Patient was left in bedside chair with call light within reach, LEs elevated, and tray table near patient. Patient's stanford bandage removed. Patient was 1:1 with this CARE MANAGEMENT COORDINATOR for 20 minutes total. AKIL MARTI CARE MANAGEMENT COORDINATOR
[2019-10-07 12:00] VITALS: BP 138/63
--- NOTE | 2019-10-07 12:20 | NUR ---
PT HAS BEEN ACCEPTED TO [facility] AND CAN GO ON SUNDAY 10/08 AFTER COMPLETING 3 NIGHT STAY.
--- NOTE | 2019-10-07 13:28 | NUR ---
PT MEDICATED WITH PRN MORPHINE FOR C/O LEFT KNEE DISCOMFORT WHILE USING CPM MACHINE. PT RATES PAIN 6/10. WILL MONITOR.
--- NOTE | 2019-10-07 15:18 | NUR ---
Nutritional Support Services Note: Appetite is good for meals, she is eating 100% of all meals. She receives a regular diet as ordered. S/p left knee replacement. Encouraged healthy eating and adequate calories and protein. No other nutrition intervention needed at this time. Will follow as needed. Martita Hernandez Rdn Ld
--- NOTE | 2019-10-07 15:45 | NUR ---
PHYSICAL THERAPY TREATMENT TIME: 3:10 PM - 3:28 18 MINUTES TOTAL Patient presented to therapy in supine with head of bed elevated and bed alarm activated with SCD pumps on bilateral LEs. Patient's is visiting in room with patient. Patient gives informed consent for treatment. Patient performed supine to sitting at EOB with SBA. Patient sit to stand from EOB with MIN A X 1 with verbal cues for hand placement. Patient ambulated with stanford wrap around L FOOT into dorsiflexion and this therapist lifting the L foot also with another stanford wrap into DF, while she ambulated with Wh Walker and Close Supervision for 60' x 1. Patient required verbal cues for increasing step-length, heel down, pushing walker forwards and for upright posture, as well as putting hands back when she was about to sit on EOB. Patient transferred back to supine in bed with SBA. Patient was left in supine in bed with head of bed elevated, call light within reach and bed alarm activated. Patient also had SCD PUMPS PUT ON BILATERAL LEs and turned on. Patient was 1:1 with this FRUIT PICKER for 18 minutes total. AKIL MARTI FRUIT PICKER
--- NOTE | 2019-10-07 15:45 | NUR ---
ot note Pt was seen this P.M. 1:1 for second OT session consisting of 15 minutes. Upon arrival pt was supine in bed. Pt identified by name and and had complaints of 1/10 pain in her L knee during rest and 3/10 pain her L knee durign activity. Pt transferred supine to sit EOB with SBA. Followed by sit to stand from bed level with Oneil and use of w/w. Functional mobility was then completed around the room with CGA and use of w/w. Challenged pt's dynamic standing tolerance needed for increased I and endurance and pt was able to tolerate aprox 5 minutes before sitting due to fatigue. Pt then transferred back into bed sit to supine with SBA. There she was left with call light in hand, trya table in place, and phone in reach. Continue with rec D/C plan to SNF. RAHEEL Bueno/Eriberto
[2019-10-07 16:00] VITALS: BP 130/63
[2019-10-07 20:00] VITALS: BP 108/56
[2019-10-08] VITALS: BP 105/60
[2019-10-08 06:44] LABS: BASO % 0.2 % (0.0-1.0); EOS # 0.4 10*3/uL (0.0-0.4); EOS % 3.7 % (1.0-4.0); HEMATOCRIT 34.1 % (37.0-47.0); HEMOGLOBIN 11.3 g/dl (12.0-16.0); LYMPH # 1.6 10*3/uL (1.3-4.4); LYMPH % 16.5 % (27.0-41.0); MEAN CELL VOLUME 91.2 fl (81.0-99.0); MEAN CORPUSCULAR HGB 30.2 pg (27.0-31.0); MEAN CORPUSCULAR HGB CONC 33.1 g/dl (33.0-37.0); MEAN PLATELET VOLUME 10.7 fl (9.6-12.3); MONO # 0.9 10*3/uL (0.1-1.0); MONO % 9.6 % (3.0-9.0); NEUT # 6.6 10*3/uL (2.3-7.9); NEUT % 69.6 % (47.0-73.0); PLATELET COUNT AUTOMATED 261 10*3/uL (130-400); RED BLOOD COUNT 3.74 10*6/uL (4.10-5.10); RED CELL DISTRI WIDTH 13.2 % (0-14.5); WHITE BLOOD COUNT 9.5 10*3/uL (4.8-10.8)
--- NOTE | 2019-10-08 07:30 | NUR ---
PT RESTING IN BED. VOICES NO CONCERNS AT THIS TIME. RESPS EASY AND NONLABORED. NO S/S OF DISTRESS NOTED. WHITE BOARD UPDATED.CALL LIGHT WITHIN REACH.
[2019-10-08 08:00] VITALS: BP 148/69
--- NOTE | 2019-10-08 08:45 | NUR ---
OT NOTE Pt was seen this A.M. 1:1 for 15 minute OT session. Upon arrival pt was supine in bed. Pt identified by name and and had complaints of 3/10 L knee pain. Pt transferred supine to sit EOB with SBA. While sitting EOB requested for pt to doff and tez B socks and was able to complete this session while forward flexing with CGA for safety, pt reported that she prefered to complete LB dressing without the use of adaptive equipment. Sit to stand completed from bed level with CGA and use of w/w for UE support. Functional mobility was then completed into the bathroom with CGA and use of w/w. There she transferred on/off standard commode with CGA for safety and verbal prompts for safety with alignment due to bouts of impulsive behaviors. Functional mobility then completed back to the room with CGA and use of w/w. There she transferred sit to supine with SBA and was left with call light in hand, tray table in place, and SCD pump activiated. Continue with rec D/C plan to SNF. RAHEEL Bueno/Eriberto
--- NOTE | 2019-10-08 08:55 | NUR ---
PHYSICAL THERAPY TREATMENT TIME: 08:30 AM - 08:45 AM 15 MINUTES Patient presented to therapy in supine with SCD pumps on R LE and and heel protector boot on L foot. Patient gives informed consent for treatment. Patient was identified by name and on wristband. Patient was 3/10 pain level in the L knee. Patient transferred supine to sitting at EOB with SBA. Patient sat on EOB with SBA. Patient sit to stand from EOB with SBA. Patient's L foot held in dorsiflexion with stanofrd wrap and this DRIVER OPERATOR holding stanford wrap as the patient ambulated. Patient ambulated with Wh Walker and MIN A X 1 to hold L FOOT up into DF and Close Supervision for assistance with ambulation. If patient had AFO on L foot she would be able to ambulate with Close Supervision. Patient ambulated with Wh Walker and Close Supervision for 50' x 1. Patient performed 30 second sit to stand test with 12 SIT TO STANDS PERFORMED FROM EOB in 30 seconds with use of UEs TO PUSH OFF THE EOB. Patient transferred back to supine in bed with SBA. Patient was left in supine in bed with head of bed elevated, call light within reach and tray table near patient. Patient was 1:1 with this DRIVER OPERATOR for 15 minutes total. AKIL MARTI DRIVER OPERATOR
[2019-10-08] MEDS ORDERED: GOOD SENSE ASP325 MG PO (11:46)
[2019-10-08] MEDS ORDERED: Lovenox40 MG/0.4 PO (11:46)
[2019-10-08] MEDS ORDERED: HYDROCODONE-AC1 EAC1 PO (11:48)
--- NOTE | 2019-10-08 11:50 | NUR ---
PT COMPLAINS OF 5/10 LEFT KNEE PAIN. MEDICATED PER ORDER. WILL MONITOR FOR RELIEF. VOICES NO OTHER CONCERNS AT THIS TIME. RESTING IN BED. FAMILY AT BEDISDE. CALL LIGHT WITHIN REACH.
--- NOTE | 2019-10-08 12:17 | NUR ---
PT STATES DR COX "ASSOCIATE" WAS IN TO SEE HER AND REMOVED HER KNEE DRESSING. NEW DRESSING WAS OBTAINED FROM NURSING SUPERVISIOR AND APPLIED. PT TOLERATED WELL. NO S/S OF INFECTION NOTED.
--- NOTE | 2019-10-08 12:25 | NUR ---
REPORT GIVEN TO NURSE AT [facility].
[2019-10-08] MEDS ORDERED: ALPRAZOLAM0.25 M2 PO (12:32)
--- NOTE | 2019-10-08 12:37 | NUR ---
NORCO EFFECTIVE PER PT
--- NOTE | 2019-10-08 12:38 | NUR ---
Discharge instructions reviewed with patient/family. Patient receptive and verbalizes understanding. Follow-up care arranged. Written instructions given to patient/family. HISSOM,EMEKA The Discharge Plan/Instructions have been completed.
--- NOTE | 2019-10-08 14:11 | NUR ---
JELENA received phone call from IAN Gallardo. Patients is wanting to transport the patient to [facility] himself. HARD CANDY BATCH MIXER explained that would be okay, but if needed patient would qualify for an Ambulance. HARD CANDY BATCH MIXER notified [facility] and will fax discharge when its available to [facility]. -JELENA Yanez
--- NOTE | 2019-10-08 15:17 | NUR ---
OCCUPATIONAL THERAPY CO-SIGN I approve of the Occupational Therapy notes written above. CONOR MADERA OTR/Eriberto
--- NOTE | 2019-10-08 15:23 | NUR ---
PHYSICAL THERAPY CO-SIGN I approve of the Physical Therapy notes written above. Gayla Sepulveda PT
== END 2019-10-08 14:11 | disposition other institution (70) | DRG 470 ==
LOC: SDC 02:29 → 5E 07:47 → SDC 09:00 → 5E 10-08 14:11
PROVIDERS: Orthopaedic Surgery; Student in an Organized Health Care Education/Training Program; ADMIT Family Medicine
PROC: 0SRD0J9 Replacement of Left Knee Joint with Synthetic Substitute, Cemented, Open Approach (ICD-10-PCS; principal; 2019-10-05)
DX: M17.12 Unilateral primary osteoarthritis, left knee (principal); K21.9 Gastro-esophageal reflux disease without esophagitis; F32.9 Major depressive disorder, single episode, unspecified; M81.0 Age-related osteoporosis without current pathological fracture; E03.9 Hypothyroidism, unspecified; E66.3 Overweight; R73.03 Prediabetes; E78.5 Hyperlipidemia, unspecified; F41.9 Anxiety disorder, unspecified; Z68.29 Body mass index [BMI] 29.0-29.9, adult; Z82.0 Family history of epilepsy and other diseases of the nervous system; Z79.899 Other long term (current) drug therapy; Z88.5 Allergy status to narcotic agent; Z88.8 Allergy status to other drugs, medicaments and biological substances

== ENCOUNTER → 2019-11-03 | Outpatient (CLI) | payer MEDICARE ==
[~2019-11-03] MED LIST changes: +ALPRAZOLAM0.25 M2 PO; +GOOD SENSE ASP325 MG PO; +HYDROCODONE-AC1 EAC1 PO; +Lovenox40 MG/0.4 PO
== END ==
LOC: ORTHO 00:54
DX: Z96.652 Presence of left artificial knee joint (principal)

== ENCOUNTER → 2020-02-22 | Outpatient (CLI) | payer MEDICARE | END | disposition home or self-care (01) | LOC: RAD 11:23 | DX: M17.0 Bilateral primary osteoarthritis of knee (principal); Z96.652 Presence of left artificial knee joint ==

== ENCOUNTER → 2020-06-07 | Outpatient (CLI) | payer MEDICARE ==
[~2020-06-07] MED LIST changes: +CYMBALTA30 MG PO; +CYMBALTA60 MG PO
== END | disposition home or self-care (01) ==
LOC: US 05-29 11:00
PROVIDERS: ATTEND Physician Assistant
DX: K76.0 Fatty (change of) liver, not elsewhere classified (principal); R79.89 Other specified abnormal findings of blood chemistry

== ENCOUNTER 2020-06-09 15:36 | Inpatient (IN) | payer MEDICARE ==
[~2020-06-09] VITALS: Ht 165.1 cm; Wt 83.3 kg
[~2020-06-09 15:36] MED LIST changes: -CYMBALTA30 MG PO; -CYMBALTA60 MG PO
[2020-06-09 15:39] VITALS: BP 167/96
[2020-06-09 15:51] VITALS: BP 157/82
[2020-06-09 16:11] LABS: BASO % 0.3 % (0.0-1.0); EOS # 0.2 10*3/uL (0.0-0.4); EOS % 1.9 % (1.0-4.0); HEMATOCRIT 42.1 % (37.0-47.0); LYMPH % 21.4 % (27.0-41.0); MEAN CELL VOLUME 87.3 fl (81.0-99.0); MEAN CORPUSCULAR HGB 29.9 pg (27.0-31.0); MEAN CORPUSCULAR HGB CONC 34.2 g/dl (33.0-37.0); MEAN PLATELET VOLUME 10.3 fl (9.6-12.3); MONO % 10.4 % (3.0-9.0); NEUT # 6.2 10*3/uL (2.3-7.9); NEUT % 65.7 % (47.0-73.0); PLATELET COUNT AUTOMATED 337 10*3/uL (130-400); RED BLOOD COUNT 4.82 10*6/uL (4.10-5.10); RED CELL DISTRI WIDTH 13.1 % (0-14.5); WHITE BLOOD COUNT 9.4 10*3/uL (4.8-10.8)
[2020-06-09 16:22] LABS: ACT PARTIAL THROMBO TIME 25.6 SECONDS (20.0-32.1); INTERNATIONAL NORM RATIO 0.9 (2.0-3.5)
[2020-06-09 16:30] LABS: ALBUMIN 3.9 gm/dl (3.1-4.5); ALKALINE PHOSPHATASE 118 U/L (45-117); BUN 11 mg/dl (7-24); CHLORIDE 109 mmol/L (98-107); CREATININE 0.81 mg/dL (0.55-1.02); POTASSIUM 3.5 mmol/L (3.5-5.1); SGOT/AST 86 IU/L (3-35); SGPT/ALT 110 U/L (12-78); SODIUM 140 mmol/L (136-145); TOTAL PROTEIN 7.6 gm/dL (6.4-8.2)
--- NOTE | 2020-06-09 16:59 | NUR ---
I SPOKE TO DR. SHUKLA DUE TO PT APTT BEING 25.6 AND POLICY STATES TO GIVE BOLUS IF APTT IS LESS THAN 24. DR. SHUKLA ADVISED ME TO GO AHEAD AND GIVE THE BOLUS.
[2020-06-09 17:01] VITALS: BP 127/73
[2020-06-09 17:45] VITALS: BP 150/95
--- NOTE | 2020-06-09 17:45 | NUR ---
The assessment has been completed. EMEKA LAZAR Time: 1744 A 70 year old FEMALE admitted to under services of MIKAL MCKEON DO. Pt. arrived via ambulatory from ER. 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 DENIES CARIDAC HSX, DENIES SOB.RATES PAIN 03/08. STATES ITS ",ORE OF AN ACHE NOT A SHARP STAB:. EMEKA LAZAR
[2020-06-09] MEDS ORDERED: CYMBALTA60 MG PO (18:06)
[2020-06-09] MEDS ORDERED: CYMBALTA30 MG PO (18:06)
[2020-06-09] MEDS ORDERED: COGENTIN0.5 MG PO (18:08)
[2020-06-09 18:17] VITALS: BP 158/95
--- NOTE | 2020-06-09 18:35 | NUR ---
DR SOTO ANSWERING SERVICE NOTIFIED OF NEW CONSULT
--- NOTE | 2020-06-09 18:38 | NUR ---
DR GORE NOTIFIED PT MED REC UP TO DATE. STATES TO CALL DR SOTO WITH TROPONINS
--- NOTE | 2020-06-09 18:48 | NUR ---
DR SOTO ANSWERING SERVICE NOTIFIED OF CRITICAL TROPONIN. AWAITING CALL BACK.
--- NOTE | 2020-06-09 18:54 | NUR ---
PER DR SOTO NO NEED TO CALL HIM WITH NEXT TROPONIN. START LIPITOR 40MG DAILY. FIRST DOSE TONIGHT
[2020-06-09 20:00] VITALS: BP 139/83
--- NOTE | 2020-06-09 20:15 | NUR ---
IN TO ASSESS PATIENT. ON ENTRY TO ROOM PATIENT ON THE PHONE. DURING ASSESSMENT PATIENT STATED THAT HER CHEST "FEELS MUCH BETTER" AND THAT IT "NO LONGER IS BOTHERING HER". DENIES ANY SHORTNESS OF BREATH, OR PAIN TO ARMS. HRR. RESPIRATIONS EASY AND NONLABORED. ROOM AIR. HEPARIN DRIP INFUSING TO RIGHT AC. BED LOCKED AND IN THE LOWEST POSITION. CALL LIGHT IN REACH. WILL MONITOR.
--- NOTE | 2020-06-09 23:15 | NUR ---
DR MCPHERSON NOTIFIED OF TROPONIN OF 8.710. NO NEW ORDERS, JUST STATES TO KEEP PATIENT ON HEPARIN DRIP.
--- NOTE | 2020-06-09 23:25 | NUR ---
DR RUEDA NOTIFIED OF CRITICAL TROPONIN OF 8.710 AND LACTIC ACID OF 2.3. NO NEW ORDERS.
--- NOTE | 2020-06-09 23:29 | NUR ---
APTT 65.2. NO CHANGE NEEDED. NEXT APTT ORDERED WITH AM LAB[facility].
[2020-06-10] VITALS: BP 115/74
[2020-06-10 07:02] LABS: ACT PARTIAL THROMBO TIME 60.6 SECONDS (20.0-32.1)
[2020-06-10 07:03] LABS: BASO # 0.1 10*3/uL (0.0-0.1); BASO % 0.5 % (0.0-1.0); EOS # 0.2 10*3/uL (0.0-0.4); EOS % 1.3 % (1.0-4.0); HEMATOCRIT 42.9 % (37.0-47.0); LYMPH # 2.4 10*3/uL (1.3-4.4); LYMPH % 20.4 % (27.0-41.0); MEAN CELL VOLUME 89.7 fl (81.0-99.0); MEAN CORPUSCULAR HGB 29.5 pg (27.0-31.0); MEAN CORPUSCULAR HGB CONC 32.9 g/dl (33.0-37.0); MEAN PLATELET VOLUME 10.4 fl (9.6-12.3); MONO # 1.1 10*3/uL (0.1-1.0); MONO % 9.1 % (3.0-9.0); NEUT # 7.9 10*3/uL (2.3-7.9); NEUT % 68.2 % (47.0-73.0); PLATELET COUNT AUTOMATED 308 10*3/uL (130-400); RED BLOOD COUNT 4.78 10*6/uL (4.10-5.10); RED CELL DISTRI WIDTH 13.3 % (0-14.5); WHITE BLOOD COUNT 11.6 10*3/uL (4.8-10.8)
--- NOTE | 2020-06-10 07:22 | NUR ---
APTT 65.2. NO CHANGE NEEDED PER POLICY.
[2020-06-10 07:24] LABS: ALBUMIN 3.9 gm/dl (3.1-4.5); BUN 10 mg/dl (7-24); CHLORIDE 108 mmol/L (98-107); CHOLESTEROL 256 mg/dL (<200); CREATININE 0.82 mg/dL (0.55-1.02); POTASSIUM 3.7 mmol/L (3.5-5.1); SGOT/AST 166 IU/L (3-35); SGPT/ALT 112 U/L (12-78); SODIUM 141 mmol/L (136-145); TRIGLYCERIDES 237 mg/dl (<150); VLDL CHOLESTEROL 47 mg/dL (6-40)
[2020-06-10 07:31] LABS: ALKALINE PHOSPHATASE 111 U/L (45-117); FREE T4 1.05 ng/dl (0.76-1.46); HDL CHOLESTEROL 45 mg/dl (40-60); LDL CHOLESTEROL 164 mg/dL (9-159); TOTAL PROTEIN 7.4 gm/dL (6.4-8.2)
[2020-06-10 08:00] VITALS: BP 120/69
[2020-06-10 08:42] LABS: VITAMIN D, 25-HYDROXY 21.4 ng/mL (30-100)
[2020-06-10 12:00] VITALS: BP 114/53
--- NOTE | 2020-06-10 12:23 | NUR ---
PARKING METER MECHANIC-S in to talk to patient. Patient states lives at home with . There are numerous steps in the home. Physician: Ildefonso Caldwell [facility]acy: [facility] Home health services: no Patient's level of ADLs: INDEPENDENT Patient has working utilities: yes DME: no Follow-up physician's appointment after d/c: will need scheduled Does patient want to access PORTAL?: no Discharge plan Pt resides at home with her . Pt states that she is independent and has no discharge needs.. BETI ZAMBRANO
[2020-06-10 16:00] VITALS: BP 117/69
--- NOTE | 2020-06-10 19:40 | NUR ---
PATIENT RESTING IN BED WATCHING TV. IV HEPARIN INFUSING PER ORDER. DENIES CHEST PAIN OR SHORTNESS OF BREATH AT THIS TIME. BED IN LOWEST POSITION, CALL LIGHT IN REACH
[2020-06-10 20:00] VITALS: BP 103/54
[2020-06-10 22:01] VITALS: BP 117/51
--- NOTE | 2020-06-10 22:03 | NUR ---
DR RUEDA AWARE OF BLOOD PRESSURE. STATES OK TO GIVE LOPRESSOR
[2020-06-11] VITALS: BP 108/59
[2020-06-11 06:01] LABS: BASO % 0.4 % (0.0-1.0); EOS # 0.2 10*3/uL (0.0-0.4); HEMATOCRIT 41.1 % (37.0-47.0); LYMPH # 3.3 10*3/uL (1.3-4.4); LYMPH % 34.2 % (27.0-41.0); MEAN CELL VOLUME 91.9 fl (81.0-99.0); MEAN CORPUSCULAR HGB 30.9 pg (27.0-31.0); MEAN CORPUSCULAR HGB CONC 33.6 g/dl (33.0-37.0); MEAN PLATELET VOLUME 10.9 fl (9.6-12.3); MONO # 1.1 10*3/uL (0.1-1.0); MONO % 11.8 % (3.0-9.0); NEUT % 51.3 % (47.0-73.0); PLATELET COUNT AUTOMATED 284 10*3/uL (130-400); RED BLOOD COUNT 4.47 10*6/uL (4.10-5.10); RED CELL DISTRI WIDTH 13.6 % (0-14.5); WHITE BLOOD COUNT 9.7 10*3/uL (4.8-10.8)
[2020-06-11 06:08] LABS: ALBUMIN 3.6 gm/dl (3.1-4.5); ALKALINE PHOSPHATASE 104 U/L (45-117); BUN 17 mg/dl (7-24); CHLORIDE 109 mmol/L (98-107); CREATININE 0.78 mg/dL (0.55-1.02); POTASSIUM 3.6 mmol/L (3.5-5.1); SGOT/AST 132 IU/L (3-35); SGPT/ALT 105 U/L (12-78); SODIUM 141 mmol/L (136-145); TOTAL PROTEIN 7.2 gm/dL (6.4-8.2)
--- NOTE | 2020-06-11 06:29 | NUR ---
NO CHANGE TO HEPARIN DRIP PER POLICY. VERIFIED WITH ELAINA SOSA
[2020-06-11 08:00] VITALS: BP 124/74
--- NOTE | 2020-06-11 08:22 | NUR ---
IN PT ROOM DUE TO LOSING HER IV SITE IN RIGHT HAND. IV HEPARIN STOPPED AND PRESSURE APPLIED TO SITE UNTIL BLEEDING HAS STOPPED. NEW IV STARTED IN THE LEFT HAND WITH A 22, HEPARIN IV CONTINUED. PT DENIES CHEST PAIN AND SOB. PT HAS NO OTHER NEEDS OR COMPLAINTS AT THIS TIME. CALL LIGHT WITHIN REACH, WILL CONTINUE TO MONITOR
[2020-06-11 12:00] VITALS: BP 110/71
--- NOTE | 2020-06-11 12:17 | NUR ---
SPOKE TO PT ABOUT PLAN OF CARE
[2020-06-11] MEDS ORDERED: LOPRESSOR25 MG PO (12:21)
[2020-06-11] MEDS ORDERED: ATORVASTATIN CA20 M1 PO (12:21)
[2020-06-11] MEDS ORDERED: ASPIRIN ADULT L81 M2 PO (12:21)
[2020-06-11 16:00] VITALS: BP 119/71
--- NOTE | 2020-06-11 17:23 | NUR ---
IV started right antecubital with #22 protective cath after 1 attempts. Site prepped with Chloroprep. Sterile dressing applied. Patient tolerated procedure well. IV HEPARIN INFUSING AT 9.5 ML/HR GAIL HOLLIS
[2020-06-11 20:00] VITALS: BP 139/75
--- NOTE | 2020-06-11 20:00 | NUR ---
PATIENT SITTING IN BED WATCHING TV. HEPARIN INFUSING PER ORDER. PATIENT DENIES CHEST PAIN, PRESSURE OR SHORTNESS OF BREATH AT THIS TIME. BED IN LOWEST POSITION, CALL LIGHT IN REACH
--- NOTE | 2020-06-11 21:02 | NUR ---
MEDICATED WITH PRN XANAX FOR C/O ANXIOUSNESS. WILL MONITOR
--- NOTE | 2020-06-11 22:02 | NUR ---
PATIENT RESTING IN BED WITH EYES CLOSED. RESPS EASY AND REGULAR. MEDICATION SEEMS EFFECTIVE
[2020-06-12] VITALS: BP 98/64
--- NOTE | 2020-06-12 02:14 | NUR ---
PATIENT RESTING IN BED WITH NO S/S OF DISTRESS. BED IN LOWEST POSITION, CALL LIGHT IN REACH
--- NOTE | 2020-06-12 02:22 | NUR ---
24 HR chart check completed.
[2020-06-12 04:00] VITALS: BP 120/78
--- NOTE | 2020-06-12 06:02 | NUR ---
PATIENT WASHING UP AT THIS TIME. DENIES CHEST PAIN OR SHORTNESS OF BREATH. BED IN LOWEST POSITION, CALL LIGHT IN REACH
[2020-06-12 06:31] LABS: BASO # 0.1 10*3/uL (0.0-0.1); BASO % 0.5 % (0.0-1.0); EOS # 0.2 10*3/uL (0.0-0.4); EOS % 1.8 % (1.0-4.0); HEMATOCRIT 40.4 % (37.0-47.0); LYMPH # 2.8 10*3/uL (1.3-4.4); LYMPH % 30.8 % (27.0-41.0); MEAN CELL VOLUME 91.4 fl (81.0-99.0); MEAN CORPUSCULAR HGB 30.3 pg (27.0-31.0); MEAN CORPUSCULAR HGB CONC 33.2 g/dl (33.0-37.0); MEAN PLATELET VOLUME 10.9 fl (9.6-12.3); MONO % 10.8 % (3.0-9.0); NEUT # 5.1 10*3/uL (2.3-7.9); NEUT % 55.8 % (47.0-73.0); PLATELET COUNT AUTOMATED 260 10*3/uL (130-400); RED BLOOD COUNT 4.42 10*6/uL (4.10-5.10); RED CELL DISTRI WIDTH 13.5 % (0-14.5); WHITE BLOOD COUNT 9.2 10*3/uL (4.8-10.8)
--- NOTE | 2020-06-12 06:43 | NUR ---
NO CHANGE TO HEPARIN DRIP PER POLICY. ELAINA SOSA VERIFIED WITH THIS RN.
--- NOTE | 2020-06-12 07:55 | NUR ---
ASSESSMENT COMPLETE AT THIS TIME WITHOUT INCIDENCE. PT STATES SHE HAS NO CHEST PAIN, SHE IS JUST NERVOUS FOR THE HEART CATH TODAY. RESPIRATIONS ARE RELAXED AND REGULAR. HEPARIN IV STILL RUNNING IN RIGHT ARM AT 9.5 ML/HR. CALL LIGHT WITHIN REACH, WILL CONTINUE TO MONITOR
[2020-06-12 08:00] VITALS: BP 114/60
--- NOTE | 2020-06-12 09:17 | NUR ---
SPOKE TO QI AT [facility] AND GAVE REPORT. SHE STATES TO KEEP PATIENT ON HEPARIN DRIP DURING TRANSPORT AND TO GIVE HER THE ASPIRIN AND METOPROLOL, HOLD ALL OTHER MEDS.
--- NOTE | 2020-06-12 09:30 | NUR ---
DR VIDAL IN TO SEE PATIENT. I WENT OVER DISCHARGE PLANS WITH PATIENT. SHE IS AWARE OF NPO, AMBULANCE TO PICK HER UP AT 1200. PT HAS NO QUESTIONS AT THIS TIME. IV STILL IN PLACE WITH HEPARIN RUNNING AT 9.5 ML/HR. NO WOUNDS. HEART MONITOR WILL BE REMOVED ONCE JAL ARRIVES. CALL LIGHT [facility] REACH, WILL CONTINUE TO MONITOR
--- NOTE | 2020-06-12 12:03 | NUR ---
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
== END 2020-06-12 12:03 | disposition short-term general hospital (02) | DRG 281 ==
LOC: ED 15:36 → 4E 16:59 → EDHOLD 16:59 → 4E 17:37
PROVIDERS: Emergency Medicine; Family Medicine; Internal Medicine; ADMIT Student in an Organized Health Care Education/Training Program; ATTEND Student in an Organized Health Care Education/Training Program
DX: I21.4 Non-ST elevation (NSTEMI) myocardial infarction (principal); E87.2 Acidosis; F32.9 Major depressive disorder, single episode, unspecified; F41.9 Anxiety disorder, unspecified; E78.5 Hyperlipidemia, unspecified; K21.9 Gastro-esophageal reflux disease without esophagitis; M19.90 Unspecified osteoarthritis, unspecified site; E87.8 Other disorders of electrolyte and fluid balance, not elsewhere classified; R73.9 Hyperglycemia, unspecified; F17.210 Nicotine dependence, cigarettes, uncomplicated; I20.0 Unstable angina; R74.8 Abnormal levels of other serum enzymes; Z79.1 Long term (current) use of non-steroidal anti-inflammatories (NSAID); E03.9 Hypothyroidism, unspecified; Z88.6 Allergy status to analgesic agent; Z88.5 Allergy status to narcotic agent

== ENCOUNTER → 2020-09-08 | Outpatient (CLI) | payer MEDICARE ==
[~2020-09-08] MED LIST changes: +ASPIRIN ADULT L81 M2 PO; +ATORVASTATIN CA20 M1 PO; +CYMBALTA30 MG PO; +CYMBALTA60 MG PO; +LOPRESSOR25 MG PO
[2020-09-08 17:00] LABS: BILIRUBIN Negative (Negative); BLOOD Negative (Negative); CLARITY Cloudy (Clear); COLOR Yellow (Yellow); GLUCOSE 3+ (Negative); KETONE Negative (Negative); LEUKO ESTERASE 2+ (Negative); NITRITE Negative (Negative)
[2020-09-08 17:12] LABS: RBC 0-2 rbc/hpf (0-2)
[2020-09-08 17:13] LABS: BACTERIA 3+
== END | disposition home or self-care (01) ==
LOC: LAB 14:56
PROVIDERS: ATTEND Physician Assistant
DX: R19.7 Diarrhea, unspecified (principal); R82.90 Unspecified abnormal findings in urine

== ENCOUNTER → 2020-10-16 | Outpatient (CLI) | payer MEDICARE ==
[~2020-10-16] MED LIST changes: +SEPTDS PO
[2020-10-16 09:46] LABS: BASO % 0.5 % (0.0-1.0); EOS # 0.2 10*3/uL (0.0-0.4); EOS % 2.3 % (1.0-4.0); LYMPH # 1.6 10*3/uL (1.3-4.4); LYMPH % 19.9 % (27.0-41.0); MEAN CELL VOLUME 90.4 fl (81.0-99.0); MEAN CORPUSCULAR HGB 29.7 pg (27.0-31.0); MEAN CORPUSCULAR HGB CONC 32.9 g/dl (33.0-37.0); MEAN PLATELET VOLUME 10.3 fl (9.6-12.3); MONO # 0.6 10*3/uL (0.1-1.0); MONO % 7.2 % (3.0-9.0); NEUT # 5.6 10*3/uL (2.3-7.9); NEUT % 69.7 % (47.0-73.0); PLATELET COUNT AUTOMATED 350 10*3/uL (130-400); RED BLOOD COUNT 4.98 10*6/uL (4.10-5.10); RED CELL DISTRI WIDTH 13.6 % (0-14.5)
== END | disposition home or self-care (01) ==
LOC: LAB 09:30
PROVIDERS: ATTEND Orthopaedic Surgery
DX: E03.9 Hypothyroidism, unspecified (principal); I10 Essential (primary) hypertension; M25.562 Pain in left knee; M25.561 Pain in right knee

== ENCOUNTER → 2020-11-13 | Outpatient (CLI) | payer MEDICARE | END | disposition home or self-care (01) | LOC: RAD 12:26 | PROVIDERS: ATTEND Physician Assistant | DX: R06.02 Shortness of breath (principal); Z95.828 Presence of other vascular implants and grafts ==

== ENCOUNTER 2020-12-13 11:53 | Emergency (ER) | payer MEDICARE ==
[~2020-12-13] VITALS: Wt 77.1 kg
[~2020-12-13 11:53] MED LIST changes: -SEPTDS PO
[2020-12-13 13:14] LABS: BASO % 0.4 % (0.0-1.0); EOS # 0.1 10*3/uL (0.0-0.4); EOS % 1.8 % (1.0-4.0); HEMATOCRIT 39.7 % (37.0-47.0); LYMPH % 14.7 % (27.0-41.0); MEAN CELL VOLUME 88.8 fl (81.0-99.0); MEAN CORPUSCULAR HGB 30.6 pg (27.0-31.0); MEAN CORPUSCULAR HGB CONC 34.5 g/dl (33.0-37.0); MONO # 0.5 10*3/uL (0.1-1.0); MONO % 7.6 % (3.0-9.0); NEUT % 75.1 % (47.0-73.0); PLATELET COUNT AUTOMATED 354 10*3/uL (130-400); RED BLOOD COUNT 4.47 10*6/uL (4.10-5.10); RED CELL DISTRI WIDTH 13.3 % (0-14.5); WHITE BLOOD COUNT 6.7 10*3/uL (4.8-10.8)
[2020-12-13 13:25] LABS: BILIRUBIN Negative (Negative); BLOOD Negative (Negative); CLARITY Cloudy (Clear); COLOR Dark Yellow (Yellow); GLUCOSE Negative (Negative); KETONE Trace (Negative); LEUKO ESTERASE 2+ (Negative); NITRITE Positive (Negative); PH 5.5 (4.5-8.0)
[2020-12-13 13:30] LABS: ALBUMIN 3.8 gm/dl (3.1-4.5); ALKALINE PHOSPHATASE 143 U/L (45-117); BUN 13 mg/dl (7-24); CHLORIDE 111 mmol/L (98-107); CREATININE 0.73 mg/dL (0.55-1.02); POTASSIUM 3.5 mmol/L (3.5-5.1); SGOT/AST 37 IU/L (3-35); SGPT/ALT 32 U/L (12-78); SODIUM 143 mmol/L (136-145); TOTAL PROTEIN 7.3 gm/dL (6.4-8.2)
[2020-12-13 13:34] LABS: WBC 31-40 wbc/hpf (0-5)
[2020-12-13 13:35] LABS: BACTERIA 4+
[2020-12-13] MEDS ORDERED: SEPTDS PO (15:14)
== END 2020-12-13 15:30 | disposition home or self-care (01) ==
LOC: ED 11:53
PROVIDERS: Physician Assistant
DX: T50.905A Adverse effect of unspecified drugs, medicaments and biological substances, initial encounter (principal); N39.0 Urinary tract infection, site not specified; F41.9 Anxiety disorder, unspecified; F32.9 Major depressive disorder, single episode, unspecified; K21.9 Gastro-esophageal reflux disease without esophagitis; Z79.899 Other long term (current) drug therapy; Z88.6 Allergy status to analgesic agent; Z79.82 Long term (current) use of aspirin; Z79.2 Long term (current) use of antibiotics; Z98.890 Other specified postprocedural states; Z96.652 Presence of left artificial knee joint; Y92.89 Other specified places as the place of occurrence of the external cause

== ENCOUNTER → 2021-07-09 | Outpatient (CLI) | payer MEDICARE ==
[~2021-07-09] MED LIST changes: +SEPTDS PO
== END | disposition home or self-care (01) ==
LOC: MAMMO 09:29
PROVIDERS: ATTEND Physician Assistant
DX: Z12.31 Encounter for screening mammogram for malignant neoplasm of breast (principal); N64.89 Other specified disorders of breast

== ENCOUNTER → 2022-07-31 | Outpatient (CLI) | payer MEDICARE | END | disposition home or self-care (01) | LOC: MAMMO 07-10 01:44 | PROVIDERS: ATTEND Physician Assistant | DX: Z12.31 Encounter for screening mammogram for malignant neoplasm of breast (principal); N64.9 Disorder of breast, unspecified ==

== ENCOUNTER → 2022-08-27 | Outpatient (CLI) | payer MEDICARE | END | disposition home or self-care (01) | LOC: MAMMO 00:30 | PROVIDERS: ATTEND Physician Assistant | DX: N63.11 Unspecified lump in the right breast, upper outer quadrant (principal); R92.8 Other abnormal and inconclusive findings on diagnostic imaging of breast ==

== ENCOUNTER → 2022-09-04 | Outpatient (CLI) | payer MEDICARE ==
[2022-09-04 11:35] LABS: ACT PARTIAL THROMBO TIME 24.1 SECONDS (20.0-32.1); INTERNATIONAL NORM RATIO 0.9 (2.0-3.5)
== END | disposition home or self-care (01) ==
LOC: RAD 10:00 → SDC 11:00 → EDSTATUS 11:00
PROVIDERS: ATTEND Physician Assistant
DX: R92.8 Other abnormal and inconclusive findings on diagnostic imaging of breast (principal); Z79.01 Long term (current) use of anticoagulants

== ENCOUNTER → 2023-07-29 | Outpatient (CLI) | payer MEDICARE | END | disposition home or self-care (01) | LOC: MAMMO 13:00 | PROVIDERS: ATTEND Physician Assistant | DX: C50.919 Malignant neoplasm of unspecified site of unspecified female breast (principal); Q67.8 Other congenital deformities of chest; R92.1 Mammographic calcification found on diagnostic imaging of breast ==

== ENCOUNTER → 2024-02-27 | Outpatient (CLI) | payer MEDICARE ==
[2024-02-27 10:59] LABS: BASO % 0.5 % (0.0-1.0); EOS # 0.2 10*3/uL (0.0-0.4); HEMATOCRIT 39.7 % (37.0-47.0); LYMPH # 1.1 10*3/uL (1.3-4.4); LYMPH % 18.5 % (27.0-41.0); MEAN CELL VOLUME 92.5 fl (81.0-99.0); MEAN CORPUSCULAR HGB 31.5 pg (27.0-31.0); MEAN PLATELET VOLUME 10.8 fl (9.6-12.3); MONO # 0.6 10*3/uL (0.1-1.0); MONO % 9.8 % (3.0-9.0); NEUT # 4.1 10*3/uL (2.3-7.9); PLATELET COUNT AUTOMATED 257 10*3/uL (130-400); RED BLOOD COUNT 4.29 10*6/uL (4.10-5.10)
[2024-02-27 11:25] LABS: ALKALINE PHOSPHATASE 120 U/L (46-116); BUN 7 mg/dl (9-23); CHLORIDE 108 mmol/L (98-107); POTASSIUM 3.9 mmol/L (3.4-5.1); SGPT/ALT 38 U/L (5-49); TOTAL PROTEIN 6.9 gm/dL (6.0-8.0)
== END | disposition home or self-care (01) ==
LOC: LAB 00:01
PROVIDERS: ATTEND Internal Medicine Hematology & Oncology
DX: C50.411 Malignant neoplasm of upper-outer quadrant of right female breast (principal)